=== PATIENT | male | born 1945 | race African-American/Black ===

== ENCOUNTER 2016-09-25 09:47 | Emergency (ER) | payer OTHER ==
[~2016-09-25] VITALS: Ht 180.3 cm; Wt 100.0 kg
[~2016-09-25 09:47] MED LIST: ATEN-42 PO
[2016-09-25] MEDS ORDERED: BACITRACIN ZINC OINT UDPKT TOP ONE (10:30)
[2016-09-25 11:09] VITALS: BP 154/98
== END 2016-09-25 11:52 | disposition home or self-care (01) ==
LOC: ER 09:48
DX: S01.81XA Laceration without foreign body of other part of head, initial encounter (principal); I10 Essential (primary) hypertension; M19.90 Unspecified osteoarthritis, unspecified site; W06.XXXA Fall from bed, initial encounter; Y93.89 Activity, other specified; Y99.8 Other external cause status; Y92.89 Other specified places as the place of occurrence of the external cause
CPT/HCPCS: 12011; 99283